=== PATIENT | male | born 1970 | race Two or more races ===

== ENCOUNTER 2024-11-05 09:32 | Emergency (ER) | payer OTHER ==
[~2024-11-05] VITALS: Ht 177.8 cm; Wt 90.7 kg
[2024-11-05] MEDS ORDERED: ALTACE2.5 MG (10:14)
[2024-11-05] MEDS ORDERED: [UNRECOGNIZED DRUG - OTHER] (10:14)
== END 2024-11-05 12:32 | disposition home or self-care (01) ==
LOC: ER 09:35
DX: T81.31XA Disruption of external operation (surgical) wound, not elsewhere classified, initial encounter (principal); I10 Essential (primary) hypertension